=== PATIENT | male | born 1955 | race Caucasian/White ===

== ENCOUNTER 2023-12-02 18:50 | Emergency (ER) | payer OTHER, SELFPAY ==
[2023-12-02 18:50] VITALS: BMI 27.3
[2023-12-02 18:54] VITALS: BP 126/72
--- NOTE | 2023-12-02 20:25 | ED.GENMED ---
History of Present Illness
General
Chief Complaint: Urinary Symptoms
Source: patient
Exam Limitations: none
Time Seen by Provider: 12/02/23 19:35
Travel History
Have you had any contact with someone who has COVID-19?: No
Do you have any symptoms of coronavirus? Fever > 100 degrees, chills, cough, shortness of breath, sore throat, loss of taste or smell, muscle aches, or headache?: No
History of Present Illness
History of Present Illness:
This is a 68 year old male that comes in with c/o difficulty urinating. States that he has been here before with urinary retention. States that he had a catheter at that time and followed up with the Urologist. States that the catheter was removed
and he was given Flomax and he was allergic to this. States that he has the urge to Urinate and then there is a pause and then his stream is weak. States that he does have an appointment with the Urologist on the 05 of December. Denies any fever,
chills, chest pain, SOB, abd pain, nausea, vomiting, diarrhea, headache, dizziness, urinary burning.
Past History
Past History
ED Past Medical History: Psychiatric (Anxiety, Depression) and Other (Chronic pain syndrome-narcotic dependent, Herniated disc. PNA, Urinary retention, Chronic back pain, )
ED Past Surgical History: Orthopedic (Bilateral shoulder rotator cuff), Tonsilectomy and Other (Hernia repair)
Social History
Tobacco: Non-smoker
Alcohol: None
Drug: None
Personal:
Living: with family
Employment: Retired
Family History
Family History: Other (Noncontributory)
Review of Systems
Review of Systems
All Other Systems: ROS reviewed and negative except as documented in HPI and ROS
Constitutional: Reports no symptoms; Denies fever or chills
EENT: Reports no symptoms
Respiratory: Reports no symptoms; Denies cough or trouble breathing
Cardiac: Reports no symptoms; Denies chest pain
ABD/GI: Reports no symptoms; Denies abdominal pain, nausea, vomiting or diarrhea
: Reports difficulty voiding and other (Decreased stream)
Musculoskeletal: Reports no symptoms
Skin: Reports no symptoms
Neurological: Reports no symptoms; Denies dizzy or headache
Psychiatric: Reports no symptoms
Phy Exam
General Physical Exam
General Presentation: no apparent distress
General age: appears stated age
General Skin: warm and dry
General Habitus: normal
General Mental: alert
General Hydration: appears well hydrated
ENT Exam
ENT Exam: TM's normal, pharynx normal and neck supple
Eye Exam
Eye Exam: EOMI
Cardiovascular Exam
Cardiovascular Exam: regular rate/rhythm and normal peripheral pulses
Pulmonary Exam
Pulmonary Exam: lungs clear, no respiratory distress, no rales, chest non tender, no crackles, no rhonchi, no wheezing and no cough
Gastrointestinal Exam
Gastrointestinal Exam: normal bowel sounds, non tender, soft, no organomegaly, no pulsatile mass and non distended
Musculoskeletal Exam
Musculoskeletal Exam: full ROM and edema (+1 lower legs)
Skin Exam
Skin Exam: normal color, warm/dry, no rash and no petechia
Course
Orders/Labs/Results
Orders:
Orders
12/02/23 20:21
UA Reflex to Culture [Urinalysis Reflex To Culture] Urgent
Date Specimen was Collected: 12/02/23
Time Specimen was Collected: 20:09
Urine Microscopic Reflex Cult Urgent
12/02/23 21:37
Basic Metabolic Panel Urgent
Complete Blood Count/With Diff Urgent
Abnormal Lab Results
12/02/23 12/02/23
20:21 21:37
Absolute Monos (auto) 0.7 H 10^3/uL
(0.1-0.6)
Monocytes % 10.2 H %
(1.7-9.3)
Sodium 131 L mmol/L
(135-145)
Ur Occult Blood Reflex Trace A
(Negative)
Urine RBC 7-10 A /HPF
(0-2)
Urine Bacteria (Reflex) Few A
(Negative)
12/02/23 21:37
12/02/23 21:37
Sodium slightly low. Urine negative for infection.
Vital Signs
Initial and Last Documented VS:
Initial Vital Signs
Temp Pulse Resp BP Pulse Ox
98.2 F 90 20 126/72 100
12/02/23 18:54 12/02/23 18:54 12/02/23 18:54 12/02/23 18:54 12/02/23 18:54
Last Documented Vital Signs
Temp Pulse Resp BP Pulse Ox
98.2 F 63 18 115/68 98
12/02/23 18:54 12/02/23 23:27 12/02/23 23:27 12/02/23 23:27 12/02/23 23:27
MDM/Problems Addressed
Differential Diagnosis Includes:
UTI, Urinary retention,
MDM/Problems Addressed:
This is a 68 year old male that comes in with c/o the urge to urinage and then there is a pause and then he has a weak stream. States that this has him upset. Patient states that he does have an Appoinement with the Urologist on December 05.
Will check urine. Bladder scanned after urination and there was 194 remaining in the bladder. Explained to patient that he is not retaining enough at this point to need a catheter. Since patient has an appointment on the , explained that he can
discussed with him to see if there is another medication that they can try to help his retention.
Chronic conditions affecting care: Other (History of Urinary retention)
Acute Exacerbation and/or Progression of Chronic Illness:
UTI, Urinary retention
*Pulse Oximetry
Patient hypoxic: no
*EKG
Interpreted by ED Provider?: NA
Rate: EKG- N/A
*Rubber Goods Finisher Interpretation
Rate: Rubber Goods Finisher- N/A
*Critical Care Note
Total Time (30-74mins, 75-104mins- exclusive of procedures): Not Applicable
ED Attending Note
-
Portions of this chart may have been created with voice recognition software.� Occasional wrong word or��sound alike� substitutions may have occurred due to the inherent limitations of voice recognition software.
Discharge Plan
Departure
Patient Disposition: Home (Routine Discharge)
Date of Disposition: 12/02/23
Time of Disposition: 23:41
Patient with high blood pressure during this ER visit?: No
Condition: Good
Covid-19: Not Applicable
Discharge Problem:
Difficulty in urination
Prescriptions:
New
tadalafil [Cialis] 5 mg tablet
5 mg PO DAILY Qty: 15 0RF
No Action
sertraline 100 mg tablet
200 mg PO DAILY
clonazepam 1 mg tablet
1 mg PO TID
Patient Comments:
09/20/2022: last filled 09/14/22, 63 tabs for 21 days from [facility]
risperidone 2 mg tablet
2 mg PO QPM
risperidone 1 mg tablet
1 mg PO DAILY
celecoxib [Celebrex] 200 mg capsule
200 mg PO BID PRN (Reason: mild to moderate pain)
amoxicillin-pot clavulanate 500-125 mg Tablet
1 tab PO Q12 Qty: 20 0RF
guaifenesin [Mucinex] 600 mg Tablet Extended Release 12hr
600 mg PO Q12 Qty: 0 0RF
morphine 30 mg capsule,extend.release pellets
30 mg PO Q12H Qty: 14 0RF
morphine 10 mg/5 mL solution
5 mg PO Q4H PRN (Reason: pain) Qty: 100 0RF
azithromycin [Zithromax] 250 mg tablet
250 mg PO DAILY Qty: 4 0RF
tamsulosin [Flomax] 0.4 mg capsule
0.4 mg PO HS Qty: 30 2RF
Referrals:
Pollo Duran MD [Family Provider] - Call in 1-3 days for appt
Activity Restrictions/Additional Instructions:
As discussed, your urine is negative for infection and your blood work is normal. You have been given a prescription for Cialis which should help with urinary retention and your flow. Please follow up with the Urologist on the for further
evaluation. If you feel that the Cialis is helping he may be able to give you another prescription for further use. IF YOU HAVE ANY OTHER CONCERNS PLEASE RETURN TO THE EMERGENCY ROOM.
Interventions
Interventions:
*Risk Screen - Suicide Last Done: 12/02/23 18:54
*General Assessment Last Done: 12/02/23 21:29
*Neglect/Abuse Screening Last Done: 12/02/23 18:54
*ED COVID-19 Vaccine History Last Done: 12/02/23 21:29
ED-Male Genitourinary Assessment Last Done: 12/02/23 20:25
ED- Pulmonary Assessment Last Done: 12/02/23 21:28
[2023-12-02 20:32] LABS: Urine Albumin Negative (Neg - Trace); Urine Bilirubin Negative (Negative); Urine Character Clear (Clear); Urine Color Yellow; Urine Glucose Negative (Negative); Urine Ketone Negative (Negative); Urine Leukocyte Negative (Negative); Urine Nitrite Negative (Negative); Urine Occult Blood Trace (Negative); Urine Urobilinogen Negative (Neg - 1+)
[2023-12-02 20:41] LABS: Urine White Cell 0-2 /HPF (0-5)
[2023-12-02 20:42] LABS: Urine Bacteria Few (Negative)
[2023-12-02 21:29] VITALS: BP 117/76
[2023-12-02 21:49] LABS: % Basophils 0.7 % (0-2); % Eosinophils 2.8 % (0-6); % Immature Granulocytes 0.3 % (0-0.5); % Lymphocytes 23.8 % (20.5-51.1); % Monocytes 10.2 % (1.7-9.3); % Neutrophils 62.2 % (42.2-75.2); Absolute Basophils 0.1 10^3/uL (0-0.2); Absolute Eosinophils 0.2 10^3/uL (0-0.7); Absolute Lymphocytes 1.6 10^3/uL (1.2-3.4); Absolute Monocytes 0.7 10^3/uL (0.1-0.6); Absolute Neutrophils 4.2 10^3/uL (1.4-6.5); Hematocrit 45.4 % (39.0-52.0); Hemoglobin 16.1 g/dL (13.0-18.0); Mean Corp Hgb Conc. 35.5 g/dL (33.0-37.0); Mean Corpuscular Hgb 30.6 pg (27.0-31.0); Mean Corpuscular Volume 86.3 fL (80.0-94.0); Mean Platelet Volume 9.6 fL (7.4-10.4); Nucleated Red Blood Cells % 0 % (-); Platelet Count 229 10^3/uL (130-400); Red Blood Cell Count 5.26 10^6/uL (4.70-6.10); Red Cell Dist. Width 14.2 % (11.5-14.5); White Blood Cell Count 6.8 10^3/uL (4.8-10.8)
[2023-12-02 23:18] LABS: Blood Urea Nitrogen 13 mg/dl (9-20); Calcium 9.5 mg/dl (8.4-10.2); Carbon Dioxide 28 mmol/L (22-30); Chloride 100 mmol/L (98-107); Estimated Creatinine Clearance 70 ml/min; Glucose 84 mg/dl (70-99); Sodium 131 mmol/L (135-145); eGFR > 60.00
[2023-12-02 23:27] VITALS: BP 115/68
== END 2023-12-02 23:47 | disposition home or self-care (01) ==
LOC: EMR 18:50
PROVIDERS: Clinical Nurse Specialist Family Health; EMERGENCY PHYSICIAN Emergency Medicine; FAMILY PHYSICIAN Family Medicine
DX: R39.12 Poor urinary stream (principal); R39.15 Urgency of urination
CPT/HCPCS: 99283; 51798; 80048; 81003; 81015; 85025